=== PATIENT | male | born 1960 | race Caucasian/White ===

== ENCOUNTER 2016-07-03 13:22 | Emergency (ER) | payer SELFPAY ==
[~2016-07-03] VITALS: Ht 177.8 cm; Wt 79.4 kg
[2016-07-03 14:48] LABS: Basophils # (auto) 0.3 uL; DEFINITIVE VIEW TRANSMISSION; Eosinophils # (auto) 0.1 uL; Eosinophils % (auto) 1.3 % (0.0-7.0); Hemoglobin 14.4 g/dL (13.5-17.5); Lymphocytes # (auto) 3.9 uL; Lymphocytes % (auto) 41.2 % (10.0-50.0); Mean Corpuscular Hemoglobin 32.2 pg (28.0-32.0); Mean Corpuscular Hgb Conc. 32.7 g/dL (32.0-36.0); Mean Corpuscular Volume 98.7 fL (80.0-100.0); Mean Platelet Volume 8.5 fL (7.4-10.4); Monocytes # (auto) 0.8 uL; Monocytes % (auto) 8.9 % (0.0-12.0); Neutrophils # (auto) 4.4 uL; Platelet Count (auto) 366 10^3/uL (140-450); Red Cell Distribution Width 13.4 % (11.6-16.0); White Blood Cell 9.5 10^3/uL (4.4-10.8)
[2016-07-03 14:52] LABS: Basophils % (auto) 0.3 % (0.0-2.0)
[2016-07-03 14:53] LABS: Neutrophils % (auto) 48.3 % (37.0-80.0)
[2016-07-03 15:05] LABS: Albumin 3.8 g/dL (3.4-5.0); BUN/Creatinine Ratio 6.9; Bilirubin, Total 0.9 mg/dL (0.2-1.0); Calcium 8.7 mg/dL (8.5-10.1); Potassium 3.6 mmol/L (3.5-5.1); Total Protein 7.5 g/dL (6.4-8.2)
[2016-07-04] MEDS ORDERED: ONDANSETRON HCL 4 MG/2 ML VIAL IV ONE (00:30)
[2016-07-04 01:43] VITALS: BP 101/60
== END 2016-07-04 02:00 | disposition home or self-care (01) ==
LOC: ER 13:45
DX: K86.1 Other chronic pancreatitis (principal); F10.129 Alcohol abuse with intoxication, unspecified; K57.30 Diverticulosis of large intestine without perforation or abscess without bleeding; I70.90 Unspecified atherosclerosis; F17.210 Nicotine dependence, cigarettes, uncomplicated; F12.10 Cannabis abuse, uncomplicated; Z59.0 Homelessness; E11.9 Type 2 diabetes mellitus without complications; R07.9 Chest pain, unspecified; Z90.81 Acquired absence of spleen
CPT/HCPCS: 36415; 71010; 74176; 80053; 85025; 85049; 96374; 99285; J2405